=== PATIENT | female | born 1985 | race Caucasian/White ===

== ENCOUNTER 2016-04-11 20:05 | Emergency (ER) | payer OTHER ==
[~2016-04-11] VITALS: Ht 157.5 cm; Wt 77.1 kg
[2016-04-11 20:35] VITALS: BP 162/79
--- NOTE | 2016-04-11 21:22 | ED GENERAL ADULT ---
History of Present Illness General Chief Complaint: General Adult Stated Complaint: PT HAS AN IN GROWN HAIR ON THE PRIVATE AREA Source: patient Exam Limitations: no limitations Vital Signs & Intake/Output Vital Signs & Intake/Output Vital Signs Date Time Temp Pulse Resp B/P Pulse O2 O2 Flow FiO2 Ox Delivery Rate 04/11 2034 99.7 91 18 162/79 98 Room Air ED Intake and Output 04/12 0000 04/11 1200 Intake Total Output Total Balance Patient 170 lb Weight Allergies Coded Allergies: NO KNOWN ALLERGIES (02/06/12) Reconcile Medications Amoxicillin 500 MG TABLET 1 TAB PO TID CELLULITIS Sulfamethoxazole/Trimethoprim (Bactrim Ds Tablet) 800 MG-160 MG TABLET 1 TAB PO BID CELLULITIIS Triage Note: PT TO ED C/O ?ABCESS TO LEFT GROIN. THOUGHT HAD INGOWN HAIR ON THURSDAY "SO I TRIED TO GET OUT", NOTICED [facility] ON THURSDAY, NOW SIVE OF PING PONG BALL. Triage Nurses Notes Reviewed? yes Onset: Gradual Duration: day(s): (4) Timing: no prior history Injury Environment: home Severity: moderate Severity Numbers: 6 No Modifying Factors: none : No Patient currently breastfeeds: No HPI: Patient is a 31-year-old female presenting to the emergency department with ingrown hair to the private area worsening over the past 3-4 days. She reports that today she noticed there is a firm area that was raised in her private area. She does shave her vaginal area. Denies any fevers or chills no nausea vomiting chest pain or shortness of breath. Up-to-date with immunizations. No history of something the significant history of ingrown hairs in the past. She reports that she thinks she irritated because she tried to pop it. She did report some slight purulent discharge earlier today. Pain is moderate, achy and throbbing. (ERICK OLVERA) Past History Travel History Traveled to [place] past 21 day No Medical History Any Pertinent Medical History? see below for history Renal: nephrolithiasis Surgical History Surgical History: non-contributory Psychosocial History What is your primary language Malay Tobacco Use: Never used ETOH Use: occasional use Illicit Drug Use: denies illicit drug use Family History Hx Contributory? No (ERICK OLVERA) Review of Systems Review of Systems Constitutional: Reports: no symptoms. Comments Review of systems: See HPI, All other systems negative. Constitutional, no chills fever or weight loss HEENT: No visual changes no sore throat no congestion Cardiovascular: No chest pain ,palpitation Skin, no jaundice Respiratory: No dyspnea cough sputum or hemoptysis GI: No nausea no vomiting Muscle skeletal: no back pain, no neck pain, Neurologic: No numbness Psych: No stress anxiety Immunology: No splenectomy or history of AIDS (ERICK OLVERA) Physical Exam Physical Exam General Appearance: well developed/nourished, no apparent distress, alert, awake , comfortable Comments: Well-developed well-nourished person in no acute distress HEENT: Pupils equally round and reactive to light and accommodation. Nose is atraumatic. Neck: Normal inspection Cardiovascular: , normal JVP Respiratory: No respiratory distress. Abdomen: Soft, nontender nondistended, no appreciable organomegaly. Normal bowel sounds. No ascites : Area of erythema approximately 8 cm in diameter noted over the mons pubis, firm indurated area, nonfluctuant lesion approximately 3 cm and a motor in the central aspect of erythema on the mons pubis. Extremity: No edema Neuro: Alert oriented x3 Skin: See exam. Psych: Mood and affect is normal, memory and judgment is normal. Core Measures ACS in differential dx? No CVA/TIA Diagnosis: No Severe Sepsis Present: No Septic Shock Present: No (ERICK OLVERA) Progress Differential Diagnoses I considered the following diagnoses in my evaluation of the patient: Abscess, cellulitis, folliculitis Plan of Care: Current Medications Sig/Piper Start time Last Medication Dose Stop Time Status Admin Lidocaine 20 ML ONCE ONE 04/11 2129 UNVr (Lidocaine 1%) 04/11 2130 Initial ED EKG: none (ERICK OLVERA) Departure Departure Disposition: HOME OR SELF CARE Condition: Stable Clinical Impression Primary Impression: Abscess Referrals: IMLTON KIM,ESCOBAR Bazzi (PCP/Family) Additional Instructions: RETURN IN 2 DAYS FOR A WOUND CHECK. TAKE AMOXICILLIN AND BACTRIM PRESCRIBED. TAKE TTYLENOL OR MOTRIN DIRECTED OVER THE COUNTER FOR PAIN. RETURN SOONER FOR FEVERS OR CHILLS, WORSENING REDNESS OR CONCERNS. Departure Forms: Customer Survey General Discharge Information Prescriptions: Current Visit Scripts Amoxicillin 1 TAB PO TID #30 TAB Sulfamethoxazole/Trimethoprim (Bactrim Ds Tablet) 1 TAB PO BID #14 TAB (ERICK OLVERA) PA/AGRICULTURAL SCIENCE PROFESSOR Co-Sign Statement Statement: ED Attending supervision documentation- [] I saw and evaluated the patient. I have also reviewed all the pertinent lab results and diagnostic results. I agree with the findings and the plan of care as documented in the PA's/AGRICULTURAL SCIENCE PROFESSOR's documentation. [X] I have reviewed the ED Record and agree with the PA's/AGRICULTURAL SCIENCE PROFESSOR's documentation. [] Additions or exceptions (if any) to the PAs/AGRICULTURAL SCIENCE PROFESSOR's note and plan are summarized below: [] (MARISOL KIM,JASEN Pena) Procedures Incision and Drainage Site: MONS PUBIS Blade Size: 11 I & D Procedure: Yes: betadine prep, sterile drapes applied, sterile dressing applied. No: wick placed. Progress: Patient tolerated procedure well. Minimal purulent drainage expelled. Area was anesthetized with 1% lidocaine after Betadine prep. Approximately 4 mL used. (ERICK OLVERA) Critical Care Note Critical Care Note Critical Care Time: non-applicable (ERICK OLVERA)
[2016-04-11] MEDS ORDERED: AMOXICILLIN500 M3 PO (21:26)
[2016-04-11] MEDS ORDERED: BACTRIM DS TAB1 EACH PO (21:26)
== END 2016-04-11 21:57 ==
LOC: ERH 20:05
DX: L02.215 Cutaneous abscess of perineum (principal)